=== PATIENT | female | born 1980 | race Two or more races ===

== ENCOUNTER 2016-08-03 04:45 | Inpatient (IN) | payer OTHER ==
[~2016-08-03] VITALS: Ht 160 cm; Wt 61.7 kg
[2016-08-03 05:30] VITALS: BP 111/73; PULSE 89; RESP 18
[2016-08-03] MEDS ORDERED: PRENAT PO (05:34)
[2016-08-03] MEDS ORDERED: AMPICILLIN 2 GM/NS (PMX) 100 ML IV ONE (06:00)
[2016-08-03] MEDS ORDERED: TERBUTALINE 1 MG/ML INJ SC SCH (06:00)
[2016-08-03] MEDS ORDERED: MAGNESIUM SULFATE 4 GM/100 ML 100 ML IVPB ONE (06:00)
[2016-08-03] MEDS ORDERED: MAGNESIUM SULFATE 20 GM/500 ML 500 ML IV SCH (06:00)
[2016-08-03] MEDS ORDERED: MAGNESIUM SULFATE 4 GM/100 ML 100 ML IV ONE (06:00)
[2016-08-03] MEDS: LACTATED RINGER'S 1,000 ML IV SCH ×3 (06:05→22:36)
[2016-08-03] MEDS ORDERED: TERBUTALINE 1 ML ONE (06:18)
--- NOTE | 2016-08-03 06:46 | TRIAGE ---
OB Triage Datetime Report Generated by CPN: 08/03/2016 06:46 Datetime: 08/03/2016 05:43 Stage of : OB Triage Datetime: 08/03/2016 05:41 Stage of : OB Triage Datetime: 08/03/2016 05:32 Stage of : OB Triage Amniotic Fluid Color: Clear Amniotic Fluid Amount: Small Amniotic Fluid Odor: None Vaginal Bleeding: None Pool: Positive Nitrazine: Positive ROM Test Kit: OBTAINED Datetime: 08/03/2016 05:25 Vaginal Exam Dilatation (cms): 1.0 Effacement (%): 30 Station: -3 Exam By: Brian GARCIA RN Vaginal Bleeding: None Cervix, Consistency: Firm Cervix, Position: Posterior Datetime: 08/03/2016 05:09 Stage of : OB Triage Time of Arrival: 08/03/2016 04:43 EGA: 30.5 Arrived By: Wheelchair Arrived From: Home Chief Complaint: SROM Movement: Present Contractions: Denies/Absent Rupture of Membranes: Ruptured Vaginal Bleeding: None Vaginal Discharge: Denies Recent Sexual Intercouse: Denies Abdominal Trauma: Not Applicable Patient Complaints: Other Time Provider Notified: 08/03/2016 05:43 Provider Notified: Abuseleme Initial Plan: ROM+, nitrazine, SVE Maternal Assessment Level of Consciousness: Fully Conscious DTR's/Clonus: DTRs 2+; No Clonus Headache: Denies Blurred Vision: No Respiratory Effort: Unlabored Nausea/Vomiting: Denies RUQ Epigastric Pain: Denies Lower Extremities Edema: None Degree: None Upper Extremities Edema: None Degree: None Facial Edema: None Fall Risk Assessment History of Falling: (0) No Secondary Diagnosis: (0) No Ambulatory Aid: (0) Bedrest/Nurse Assist IV Therapy: (0) No Gait: (0) Normal/Bedrest/Immobile Mental Status: (0) Oriented to Own Ability Fall Score: 0 Fall Risk Score Definition: No Risk: No action required Labor Evaluation Frequency: 0 Monitor Mode: External Duration (sec)2399: 0 Pattern: Normal: <= 5 Contractions in 10 Minutes Resting Tone [place]: Relaxed Contraction Comments: pt denies feeling UC's or cramping.
[2016-08-03] MEDS: BETAMET NA PHOS/AC(6 MG/ML) 5ML INJ IM SCH (06:55)
--- NOTE | 2016-08-03 07:33 | RADRPT ---
PROCEDURE: US OB biophysical profile. CLINICAL INDICATION: decreased movements, labor TECHNIQUE: Multiple sonographic images of the pelvis were obtained. The images were reviewed on a PACS workstation. COMPARISON: No prior studies are available for comparison. FINDINGS: The cervix is dilated. There is evidence of funneling. The internal os is dilated to 2 cm. There is a single viable intrauterine gestation. Cardiac activity is present with 146 beats per min sharla. There is a vertex presentation. The placenta is posterior. There is no evidence of placental abruption. There is a slightly decreased amount of amniotic fluid with an RADHA = 6.9 cm. Biophysical profile: movement 2/2 tone 2/2. breathing 2/2 RADHA 2/2 Total 02/02 RPTAT: AA . IMPRESSION: Normal biophysical profile. Dilated cervix with evidence of funneling. Mild oligohydramnios. . .Brian Anderson MD, MD Date Time Electronically viewed and signed by .Brian Anderson MD, on 08/03/2016 07:33 .S/
--- NOTE | 2016-08-03 07:34 | RADRPT ---
PROCEDURE: US OB. CLINICAL INDICATION: Size and dates , labor TECHNIQUE: Multiple sonographic images of the pelvis and gravid uterus were obtained. The images were reviewed on a PACS workstation. COMPARISON: No prior studies are available for comparison. FINDINGS: There is a single viable intrauterine gestation. Cardiac activity is present with 146 beats per min sharla. There is a vertex presentation. The placenta is posterior. There is no evidence for an abruption or placenta previa. Measurements were made in order to determine age. The results are as follows: BPD =8.2 cm HC =29.7 cm AC =26.7 cm FL =5.3 cm Estimated gestational age of approximately 31 weeks and 1 day based on ultrasound measurements. Clinical age: 30 weeks and 5 days. The estimated date of delivery is 10/04/16, based on ultrasound measurements. The EFW = 1553 g, 25.5%, based on LMP age. RPTAT: AA IMPRESSION: Single viable intrauterine gestation of approximately 31 weeks and 1 day based on ultrasound measur ements. .Brian Anderson MD, Date Time Electronically viewed and signed by .Brian Anderson MD, MD on 08/03/2016 07:34 .S/
[2016-08-03 07:36] LABS: BASOPHILS % 0.3 % (0.0-2.0); EOSINOPHILS # 0.5 10^3/ul (0.0-0.5); EOSINOPHILS % 4.7 % (0.0-7.0); HEMATOCRIT 32.6 % (37.0-47.0); HEMOGLOBIN 11.2 g/dl (12.0-16.0); LYMPHOCYTES # 2.1 10^3/ul (0.8-2.9); MEAN CORPUSCULAR HEMOGLOBIN 31.6 pg (29.0-33.0); MEAN CORPUSCULAR HGB CONC 34.3 g/dl (32.0-37.0); MEAN CORPUSCULAR VOLUME 92.2 fl (82.0-101.0); MEAN PLATELET VOLUME 8.9 fl (7.4-10.4); MONOCYTE # 0.8 10^3/ul (0.3-0.9); MONOCYTES % 8.2 % (0.0-11.0); NEUTROPHIL # 6.5 10^3/ul (1.6-7.5); NEUTROPHILS % 65.8 % (39.0-77.0); PLATELET COUNT 196 10^3/UL (140-440); RED BLOOD COUNT 3.53 10^6/ul (4.20-5.40); RED CELL DISTRIBUTION WIDTH 13.8 % (11.5-14.5); UNCORRECTED WBC 9.9 10^3/ul (4.8-10.8); WHITE BLOOD COUNT 9.9 10^3/ul (4.8-10.8)
[2016-08-03 07:43] LABS: CONDITION 1
[2016-08-03 07:45] LABS: ADD UMIC YES; URINE BILIRUBIN (Dip) NEGATIVE (NEGATIVE); URINE BLOOD (Dip) TRACE (NEGATIVE); URINE COLOR LT. YELLOW (YELLOW); URINE GLUCOSE (Dip) NEGATIVE (NEGATIVE); URINE KETONES (Dip) NEGATIVE (NEGATIVE); URINE LEUKOCYTE ESTERASE (Dip) NEGATIVE (NEGATIVE); URINE NITRITE (Dip) NEGATIVE (NEGATIVE); URINE TOTAL PROTEIN (Dip) NEGATIVE (NEGATIVE); URINE UROBILINOGEN (Dip) 0.2 E.U./dL (0.1-1.0)
[2016-08-03 07:58] LABS: INR 1.01; PARTIAL THROMBOPLASTIN TIME 23.8 Sec (25.0-35.0); PROTIME 13.3 Sec (12.2-14.2)
[2016-08-03] MEDS: MAGNESIUM SULFATE 20 GM/500 ML 500 ML IV SCH ×2 (07:59→16:48)
[2016-08-03] MEDS ORDERED: ACETAMINOPHEN 325 MG TAB PO PRN (08:00)
[2016-08-03 08:24] LABS: BACTERIA,URINE RARE; URINE RBCS NONE SEEN /HPF (0)
--- NOTE | 2016-08-03 09:03 | PREOPHP ---
DATE OF ADMISSION: 08/03/2016 HISTORY OF PRESENT ILLNESS: This is a 35-year-old female, 4, para 1. This patient had a pr evious vaginal delivery at term. At this time, her due date is October 07 and gestational age today is 30 weeks and 5/7, and she had woken up this morning with abundant fluid that came from spontaneo us rupture of membranes. The Nitrazine paper pulling was positive and Nitrazine was positive. An u ltrasound was done with an amniotic fluid level of 6. She is not wing and she is being admit cresencio for 30 and 5/7 weeks' with spontaneous rupture of membranes, to treat her accordingly to avoid delivery as much as we can and to be able to give her all the medications she needs to prot ect the baby's brain and antibiotics and protect her lungs. PAST MEDICAL HISTORY: Noncontributory except for a normal spontaneous delivery. She says she had b een having pressure on her bladder area all this time since last week, and she has no pain. ALLERGIES: THE PATIENT IS NOT ALLERGIC TO ANY MEDICATIONS. SOCIAL HISTORY: She does not drink or smoke. No history of drugs. PHYSICAL EXAMINATION: VITAL SIGNS: Stable. She is afebrile. Normal blood pressure 100/80 and pulse is 80, respirations 16. HEAD AND NECK: Normal. CHEST: Clear. HEART: Normal sinus rhythm. LUNGS: Clear. ABDOMEN: Soft, nontender, no masses. Cephalic presentation of the baby and heart tones are n ormal and the trace on the monitor is normal. PELVIC: At this time is avoided due to the fact that she is ruptured. The ultrasound says that the re was no cervix, there was possibly a complete effacement. EXTREMITIES: Normal with normal pulses, no edema. The patient's weight is normal for her height. She is approximately 4 feet 9 inches. DIAGNOSES: 30 and 5/7 weeks' , spontaneous rupture of membranes. PLAN: She is being admitted for further treatment. The patient has been advised of the possibility that the baby will go twice a year or have complications, and she is aware that she needs to be in complete bed rest and comply with our orders. Dictated By: KYLIE COLE/KAT Conf#: [id number] DID#: [id number]
[2016-08-03] MEDS: DOCUSATE SODIUM 100 MG CAP PO SCH ×3 (09:21→20:59)
[2016-08-03] MEDS: MULTIVIT/MIN/FOLATE/IRON/PREN TAB PO SCH (09:21)
[2016-08-03] MEDS ORDERED: AMPICILLIN 1 GM/NS (PMX) 50 ML IV SCH (10:00)
[2016-08-03] MEDS: ERYTHROMYCIN LACTOBIONATE 250 MG in SOD CHLORIDE 0.9% 100 ML IVPB SCH ×2 (11:38→18:31)
[2016-08-03] MEDS: AMPICILLIN 2 GM/NS (PMX) 100 ML IVPB SCH ×3 (13:00→23:33)
--- NOTE | 2016-08-03 14:56 | CONS ---
DATE OF ADMISSION: 08/03/2016 DATE OF CONSULTATION: 08/03/2016 REFERRING PHYSICIAN: Dr. Evie Brown HISTORY OF PRESENT ILLNESS: I was asked to talk with this mother who is 30.5 weeks' gestational age with labor and premature rupture of membranes. Mother is a 35-year-old 4, para 1, term 1, AB 2, living 1, with good care. EDC 10/07/2016. Mother's labs are as fol lows: Blood group AB positive, RPR negative, HBsAg negative, HIV negative, GC and chlamydia culture s negative. Mother states that she was sick 2 months ago. She has been started on magnesium sulfate after admission and also received 1 dose of betamethasone on 08/03/2016 at 0700 hours. Mother is a lso receiving antibiotics, ampicillin as well as erythromycin. Estimated weight on ultrasound is 1553 grams. I discussed with mother about the infant being 30.5 weeks with risk for respiratory distress includi ng mild to moderate or severe and treatment with oxygen, CPAP as well as intubation, ventilatory the rapy and Curosurf administration depending on the severity. I also discussed about apnea of prematu rity and treatment with nasal cannula, CPAP, caffeine administration and IMV if required. Discussed about risk of infection due to prematurity and low immunity and starting on antibiotics on admissio n if needed. I also discussed about risk of hyperbilirubinemia and treatment with phototherapy. Di scussed about risk of intraventricular hemorrhage from grade I to grade IV and proportionally increa sed risk for cerebral palsy and neurodevelopmental delay if infant has intraventricular hemorrhage. Discussed about IV nutrition including TPN and possible PICC line placement for TPN. Discussed abo ut risk for feeding intolerance, gastroesophageal reflux and NEC, anemia and risks associated with 3 0.5 weeks. Mother has one child who is 4 years old and states that the child possibly has mild autism as well a s hyperactivity. Discussed about hospital length of 4 to 5 weeks or longer depending on 's clinical condition a nd treatment plans and response to treatment in the NICU. Encouraged her to pump breast milk but merrick hein, mother states that she has this breast pain due to cysts and was not willing. Encouraged her to pump and discussed about the benefits of breast milk. I also discussed about survival of 95% or greater and length of hospitalization and risk of intraventricular hemorrhage, neurodevelopmental d elay. All mother's questions were answered and discussion was concluded after mother had no further questi ons. Dictated By: EDUIN WESTFALL/KAT Conf#: [id number] DID#: [id number]
--- NOTE | 2016-08-03 16:31 | PERINOTE ---
Date/Time of Note Date/Time of Note DATE: 08/03/16 TIME: 16:26 Assessment/Recommendations Assessment: IUP - , rupture of membranes Other Assessments Possible UTI Recommendations: Would continue with ampicillin and erythromycin for 48 hrs, then PO amoxicillin and erythromycin for a total of 7 days to enhance latency. Would continue with the betamethasone course you have begun. After completion, would D/C magnesium sulfate and would not further tocolyse, although magnesium may be used for neuroprotection if the patient is in labor and the fetus is still less than 32 weeks GA. Would plan delivery at 34 weeks if the continues. Have discussed recommendations with the patient. OB Subjective Free Text/Dictaton Patient admitted with PPROM. Also has complaints of painful urination HD# 1 IUP @ 30W5D Current Medications Current Medications Magnesium Sulfate (Magnesium Sulfate 20 Gm/500 ml) 500 ml @ 50 mls/hr Q10H IV Last administered on 08/03/16 07:59; Admin Dose 50 MLS/HR; Start 08/03/16 at 05: 47 Betamethasone Acet/Betameth SodPhos 12 mg 12 mg Q24H IM Last administered on 06:55; Admin Dose 12 MG; Start 08/03/16 at 06:00; Stop 08/04/16 at 06:01 Lactated Ringer's (Lr) 1,000 ml @ 75 mls/hr [id number] IV Last administered on 06:05; Admin Dose 75 MLS/HR; Start 08/03/16 at 06:30 Prenat Multivit/ [place]/Iron/Folic Ac ( S) 1 tab DAILY PO Last administered on 08/03/16 09:21; Admin Dose 1 TAB; Start 08/03/16 at 09:00 Docusate Sodium (Colace) 100 mg TID PO Last administered on 08/03/16 14:14; Admin Dose 100 MG; Start 08/03/16 at 09:00 Acetaminophen 650 mg 650 mg Q6H PRN PO PAIN AND OR ELEVATED TEMP; Start at 08:00 Erythromycin Lactobionate 250 mg/Sodium Chloride 100 ml @ 100 mls/hr Q6 IVPB Last administered on 08/03/16 11:38; Admin Dose 100 MLS/HR; Start 08/03/16 at 12: 00 Ampicillin (Ampicillin 2 Gm/ NS (Pmx)) 100 ml @ 100 mls/hr Q6 IVPB Last administered on 08/03/16t 13:00; Admin Dose 100 MLS/HR; Start 08/03/16 at 12:00 Past Medical History Medical History: no pertinent history Surgical History: other (D&C, Breast biopsy) Para: 1 : 4 LMP (Females 10-50): Family History Significant Family History: hypertension Social History Smoker: non-smoker Alcohol: none Drugs: none OB Admission Exam Physical Exam Vitals: Vital Signs Date Time Temp Pulse Resp B/P Pulse Ox O2 Delivery O2 Flow Rate FiO2 08/03/16 05:30 98.2 89 18 111/73 99 Room Air Heart: Rhythm Normal Lungs: Clear Abdomen: WNL (Suprapubic tenderness) Heart Rate: 130's Accelerations: Accelerations Present (AGA) Decelerations: No Decelerations Varibility: Moderate Contractions on Admission: None Last 72 hours Lab Results CBC & BMP 08/03/16 06:05 Magnesium Level Test 08/03/16 11:53 Magnesium Level 5.3 *H YEYO NICHOLS MD Aug 03, 2016 16:31
[2016-08-04] MEDS: ERYTHROMYCIN LACTOBIONATE 250 MG in SOD CHLORIDE 0.9% 100 ML IVPB SCH ×4 (00:31→18:57)
[2016-08-04] MEDS: MAGNESIUM SULFATE 20 GM/500 ML 500 ML IV SCH ×3 (00:52→21:47)
[2016-08-04] MEDS: BETAMET NA PHOS/AC(6 MG/ML) 5ML INJ IM SCH (05:58)
[2016-08-04] MEDS: AMPICILLIN 2 GM/NS (PMX) 100 ML IVPB SCH ×5 (06:30→23:50)
[2016-08-04] MEDS: MULTIVIT/MIN/FOLATE/IRON/PREN TAB PO SCH (08:26)
[2016-08-04] MEDS: DOCUSATE SODIUM 100 MG CAP PO SCH ×3 (08:26→21:38)
[2016-08-04] MEDS: LACTATED RINGER'S 1,000 ML IV SCH (08:28)
--- NOTE | 2016-08-04 12:20 | PN ---
Date/Time of Note Date/Time of Note DATE: 08/04/16 TIME: 12:14 OB Subjective Subjective Subjective not wing now, not in pain, constipated. OB Objective HEENT: WNL Heart: Rhythm Normal Lungs: Clear, Equal Abdomen: WNL Extremities: Normal Reflexes: Normal Cervical Dilatation: 2cm Effacement: 50% Membranes: Ruptured Heart Rate: 130's Accelerations: Accelerations Present Decelerations: No Decelerations Contractions on Admission: >10 Minutes Apart Intensity: Mild KYLIE MOONEY MD Aug 04, 2016 12:20
[2016-08-04] MEDS ORDERED: BUTORPHANOL 2 MG INJ IV PRN (12:30)
[2016-08-04] MEDS ORDERED: LACTULOSE 30ML CUP PO ONE (12:30)
[2016-08-05] MEDS: ERYTHROMYCIN LACTOBIONATE 250 MG in SOD CHLORIDE 0.9% 100 ML IVPB SCH ×3 (00:51→12:55)
[2016-08-05] MEDS: LACTATED RINGER'S 1,000 ML IV SCH ×2 (04:01→18:10)
[2016-08-05] MEDS: AMPICILLIN 2 GM/NS (PMX) 100 ML IVPB SCH ×2 (06:03→11:38)
[2016-08-05] MEDS: MULTIVIT/MIN/FOLATE/IRON/PREN TAB PO SCH (12:08)
[2016-08-05] MEDS: DOCUSATE SODIUM 100 MG CAP PO SCH ×3 (12:08→21:00)
--- NOTE | 2016-08-05 12:39 | PN ---
Date/Time of Note Date/Time of Note DATE: 08/05/16 TIME: 12:31 OB Subjective Subjective Subjective Denies any fever or chills, reports had some leaking of fluid. Denies any abdominal pain , contractions or other symptoms OB Objective Objective Objective GA: A&O. NAD Abdomen: soft, non tender,no fundal tenderness, no guarding, no rigidity FH consistent with date Extremities: No calf tenderness, no click, no edema. No cord palpable. SCD's are in place Hematology - 72 Hrs Test 08/03/16 06:05 Basophils # 0.010^3/ul (0.0-0.1) Basophils % 0.3% (0.0-2.0) Eosinophils # 0.510^3/ul (0.0-0.5) Eosinophils % 4.7% (0.0-7.0) Hematocrit 32.6% (37.0-47.0) L Hemoglobin 11.2g/dl (12.0-16.0) L Lymphocytes # 2.110^3/ul (0.8-2.9) Lymphocytes % 21.0% (15.0-51.0) Mean Corpuscular Hemoglobin 31.6pg (29.0-33.0) Mean Corpuscular Hemoglobin Concent 34.3g/dl (32.0-37.0) Mean Corpuscular Volume 92.2fl (82.0-101.0) Mean Platelet Volume 8.9fl (7.4-10.4) Monocytes # 0.810^3/ul (0.3-0.9) Monocytes % 8.2% (0.0-11.0) Neutrophils # 6.510^3/ul (1.6-7.5) Neutrophils % 65.8% (39.0-77.0) Nucleated Red Blood Cells # 0.010^3/ul (0.0-0.0) Nucleated Red Blood Cells % 0.0/100WBC (0.0-0.0) Platelet Count 89570^3/UL (140-440) Red Blood Count 3.5310^6/ul (4.20-5.40) L Red Cell Distribution Width 13.8% (11.5-14.5) White Blood Count 9.910^3/ul (4.8-10.8) Chemistry Test 2/6/17 11:53 08/03/16 17:59 08/03/16 23:45 08/04/16 05:45 Magnesium Level 5.3mg/dl (1.7-2.5) *H 5.8mg/dl (1.7-2.5) *H 6.6mg/dl (1.7-2.5) *H 7.1mg/dl (1.7-2.5) *H Test 08/04/16 12:43 08/04/16 14:25 08/05/16 00:46 08/05/16 06:00 Creatinine 0.48mg/dl (0.44-1.00) Magnesium Level 5.5mg/dl (1.7-2.5) *H 4.4mg/dl (1.7-2.5) H 4.4mg/dl (1.7-2.5) H 4.5mg/dl (1.7-2.5) H OB Assessment/Plan Other Assessment: HD#2. IUP at 31 weeks Admitted for PPROM yesterday On latency abx and magnesium, received 2 doses of steriods. last dose of steriod about 5 hours ago No evidence of break through tocolysis, chorioamnionitis. Doing well Switch to PO ampicillin and erythromycin after 48 hours and to compete PO dose for 5 days S/p Neonatology and perinatology consult. Continue expectant management BEATRIZ SPANN MD Aug 05, 2016 12:39
[2016-08-05] MEDS: MAGNESIUM SULFATE 20 GM/500 ML 500 ML IV SCH (12:59)
[2016-08-05] MEDS: AMPICILLIN 500 MG CAP PO SCH (17:47)
[2016-08-05] MEDS: ERYTHROMYCIN BASE (EC) 500 MG TAB PO SCH (17:48)
[2016-08-05] MEDS ORDERED: ERYTHROMYCIN BASE (EC) 250 MG TAB PO SCH (18:00)
[2016-08-06] MEDS: AMPICILLIN 500 MG CAP PO SCH ×4 (00:54→18:16)
[2016-08-06] MEDS: ERYTHROMYCIN BASE (EC) 500 MG TAB PO SCH ×5 (00:54→21:22)
[2016-08-06] MEDS: LACTATED RINGER'S 1,000 ML IV SCH ×2 (04:32→13:50)
[2016-08-06] MEDS: MAGNESIUM SULFATE 20 GM/500 ML 500 ML IV SCH (08:10)
[2016-08-06] MEDS: DOCUSATE SODIUM 100 MG CAP PO SCH ×3 (09:00→21:22)
[2016-08-06] MEDS: MULTIVIT/MIN/FOLATE/IRON/PREN TAB PO SCH (09:10)
--- NOTE | 2016-08-06 13:24 | PN ---
Date/Time of Note Date/Time of Note DATE: 08/06/16 TIME: 13:19 OB Subjective Subjective Subjective still leaking fluid. afebrile, not in pain nor contractions. patient is done with steroids and mag sulfate may be dc tomorrow if ok with perinatologist. sugar test was not done so we don't know if she is GDM due to steroids. had uti being treated. for now we are stable,father and patient were counseled. continue with the same plan OB Objective HEENT: WNL Heart: Rhythm Normal Lungs: Clear, Equal Abdomen: WNL Extremities: Normal Reflexes: Normal KYLIE MOONEY MD Aug 06, 2016 13:24
[2016-08-07] MEDS: AMPICILLIN 500 MG CAP PO SCH ×3 (00:09→12:18)
[2016-08-07] MEDS: LACTATED RINGER'S 1,000 ML IV SCH ×3 (00:10→15:08)
[2016-08-07] MEDS: MAGNESIUM SULFATE 20 GM/500 ML 500 ML IV SCH (02:57)
[2016-08-07] MEDS: ERYTHROMYCIN BASE (EC) 500 MG TAB PO SCH ×2 (09:44→12:57)
[2016-08-07] MEDS: DOCUSATE SODIUM 100 MG CAP PO SCH ×2 (09:44→12:57)
[2016-08-07] MEDS: MULTIVIT/MIN/FOLATE/IRON/PREN TAB PO SCH (09:44)
[2016-08-07] MEDS ORDERED: LACTATED RINGER'S 1,000 ML IV SCH (16:05)
[2016-08-07] MEDS ORDERED: OXYTOCIN 30 UNITS/LR 500 ML IVPB ONE (16:09)
[2016-08-07] MEDS ORDERED: METHYLERGONOVINE 0.2 MG INJ IM PRN ×2 (16:30→17:30)
[2016-08-07] MEDS ORDERED: CARBOPROST 250 MCG INJ IM PRN ×3 (16:30→17:30)
[2016-08-07] MEDS ORDERED: BUTORPHANOL 2 MG INJ IV PRN ×2 (16:30)
[2016-08-07] MEDS ORDERED: OXYTOCIN 30 UNITS/LR 500 ML IV PRN ×3 (16:30→17:30)
[2016-08-07] MEDS ORDERED: ACETAMINOPHEN/CODEINE #3 TAB PO PRN (16:30)
[2016-08-07] MEDS ORDERED: AMPICILLIN 2 GM/NS (PMX) 100 ML IV ONE (16:30)
[2016-08-07] MEDS ORDERED: MISOPROSTOL 200 MCG TAB PR PRN ×3 (16:30→17:30)
[2016-08-07] MEDS ORDERED: OXYTOCIN 30 UNITS/LR 500 ML IV SCH ×4 (16:30)
[2016-08-07] MEDS ORDERED: LIDOCAINE 1% (MPF) 30 ML INJ INJ PRN ×2 (16:30)
[2016-08-07] MEDS ORDERED: IBUPROFEN 600 MG TAB PO PRN (16:30)
[2016-08-07 16:46] LABS: ADD SCAN DIFF NO
[2016-08-07 16:57] LABS: ABNORMAL IP MESSAGE 1; HEMATOCRIT 32.8 % (37.0-47.0); LYMPHOCYTES # 2.3 10^3/ul (0.8-2.9); MEAN CORPUSCULAR HEMOGLOBIN 31.6 pg (29.0-33.0); MEAN CORPUSCULAR HGB CONC 33.5 g/dl (32.0-37.0); MEAN CORPUSCULAR VOLUME 94.3 fl (82.0-101.0); PLATELET COUNT 226 10^3/UL (140-415); RED BLOOD COUNT 3.48 10^6/ul (4.20-5.40); RED CELL DISTRIBUTION WIDTH 13.2 % (11.5-14.5); WHITE BLOOD COUNT 12.6 10^3/ul (4.8-10.8)
[2016-08-07] MEDS ORDERED: LACTATED RINGER'S 1,000 ML IV PRN (17:00)
--- NOTE | 2016-08-07 17:04 | LDN ---
Date/Time of Note Date/Time of Note DATE: 08/07/16 TIME: 17:00 Delivery Summary 31.2 weeks with 4 days SROM SPONTANEOUS VAGINAL DELIVERY MIDLINE EPISIOTOMY Placenta Delivered: Spontaneously Perineum intact?: No Estimated blood loss: 400 Sponge & Needle done & correct: Yes All needle counts correct: Yes Any foreign bodies felt in the: No Problems: KYLIE MOONEY MD Aug 07, 2016 17:04
[2016-08-07 17:06] LABS: INR 0.94; PROTIME 12.6 Sec (12.2-14.2)
[2016-08-07 17:07] LABS: PARTIAL THROMBOPLASTIN TIME 21.8 Sec (25.0-35.0)
[2016-08-07] MEDS ORDERED: DIPHENHYDRAMINE 25 MG CAP PO PRN (17:30)
[2016-08-07] MEDS ORDERED: ACETAMINOPHEN 325 MG TAB PO PRN ×2 (17:30)
[2016-08-07] MEDS ORDERED: LANOLIN 7 GM TUBE TOP PRN (17:30)
[2016-08-07] MEDS ORDERED: BENZOCAINE 20% 56 ML SPRAY TOP PRN (17:30)
[2016-08-07] MEDS ORDERED: DIBUCAINE 1% 30 GM OINT PR PRN (17:30)
[2016-08-07] MEDS ORDERED: ONDANSETRON 4 MG INJ IV PRN (17:30)
[2016-08-07] MEDS: IBUPROFEN 800 MG TAB PO SCH ×2 (18:06→23:52)
[2016-08-07 18:23] VITALS: BP 126/73; PULSE 77; RESP 18
[2016-08-07] MEDS: OXYTOCIN 30 UNITS/LR 500 ML IV SCH ×2 (19:16→21:04)
[2016-08-07] MEDS ORDERED: AMPICILLIN 1 GM/NS (PMX) 50 ML IV SCH (19:30)
[2016-08-07 20:00] VITALS: BP 112/70; PULSE 70; RESP 18
[2016-08-07] MEDS: SENNA/DOCUSATE NA (8.6MG/50MG) TAB PO SCH (21:00)
[2016-08-07 21:19] LABS: EOSINOPHILS # 0.6 10^3/ul (0.0-0.5); MONOCYTE # 1.1 10^3/ul (0.3-0.9); NEUTROPHIL # 8.4 10^3/ul (1.6-7.5)
[2016-08-08 00:05] VITALS: BP 111/58; PULSE 78; RESP 18
[2016-08-08 04:00] VITALS: BP 96/59; PULSE 66; RESP 18
[2016-08-08] MEDS: IBUPROFEN 800 MG TAB PO SCH ×4 (05:50→23:52)
[2016-08-08 07:30] VITALS: BP 104/55; PULSE 64; RESP 18
[2016-08-08] MEDS: SENNA/DOCUSATE NA (8.6MG/50MG) TAB PO SCH ×2 (09:00→21:00)
[2016-08-08] MEDS ORDERED: INFLUENZA VIRUS VACCINE 0.5 ML (DISPENSING) IM* ONE (09:00)
[2016-08-08] MEDS: LACTULOSE 30ML CUP PO PRN (10:12)
--- NOTE | 2016-08-08 13:03 | PN ---
Date/Time of Note Date/Time of Note DATE: 08/08/16 TIME: 13:01 OB Subjective Subjective Subjective feels good uterus contracted lochia normal OB Objective HEENT: WNL Heart: Rhythm Normal Lungs: Clear, Equal Abdomen: WNL Extremities: Normal Reflexes: Normal KYLIE MOONEY MD Aug 08, 2016 13:03
[2016-08-08 16:00] VITALS: BP 102/55; PULSE 77; RESP 19
[2016-08-08 20:05] VITALS: BP 97/54; PULSE 76; RESP 18
[2016-08-09 04:41] VITALS: BP 98/56; PULSE 77; RESP 19
[2016-08-09] MEDS: IBUPROFEN 800 MG TAB PO SCH ×2 (05:45→11:40)
[2016-08-09 07:26] LABS: BASOPHILS % 0.3 % (0.0-2.0); EOSINOPHILS # 0.7 10^3/ul (0.0-0.5); HEMATOCRIT 30.4 % (37.0-47.0); HEMOGLOBIN 10.4 g/dl (12.0-16.0); LYMPHOCYTES # 3.6 10^3/ul (0.8-2.9); LYMPHOCYTES % 27.4 % (15.0-51.0); MEAN CORPUSCULAR HEMOGLOBIN 31.7 pg (29.0-33.0); MEAN CORPUSCULAR HGB CONC 34.3 g/dl (32.0-37.0); MEAN CORPUSCULAR VOLUME 92.5 fl (82.0-101.0); MEAN PLATELET VOLUME 7.8 fl (7.4-10.4); MONOCYTE # 1.1 10^3/ul (0.3-0.9); MONOCYTES % 8.2 % (0.0-11.0); NEUTROPHIL # 7.8 10^3/ul (1.6-7.5); NEUTROPHILS % 59.1 % (39.0-77.0); PLATELET COUNT 211 10^3/UL (140-440); RED BLOOD COUNT 3.29 10^6/ul (4.20-5.40); RED CELL DISTRIBUTION WIDTH 13.4 % (11.5-14.5); UNCORRECTED WBC 13.3 10^3/ul (4.8-10.8); WHITE BLOOD COUNT 13.3 10^3/ul (4.8-10.8)
[2016-08-09 07:30] VITALS: BP 109/51; PULSE 77; RESP 18
[2016-08-09 07:38] LABS: CONDITION 1
[2016-08-09] MEDS: SENNA/DOCUSATE NA (8.6MG/50MG) TAB PO SCH (08:26)
[2016-08-09] MEDS ORDERED: DIPHTH/TET/ACEL PERTUSS (ADULT) 0.5 ML VIAL IM* ONE (09:00)
--- NOTE | 2016-08-09 12:30 | PD.PPDC ---
MACHINE I COREMAKER Discharge Instruction Condition Patient Condition: Good Diet Diet: Resume Regular Diet Activity/Restrictions Activity: Normal Activity May Shower Restrictions: No Exercising No Lifting No Driving No Sexual Activity Nothing in the Vagina No [place] No Tampons, douche Follow-up Follow-up with Physician: 6, Week/Weeks Return to clinic for TOURS CAPTAIN Instructions: Fever greater than 101 Chills Worsening abdominal pain Excessive Vaginal Bleeding More than 2 pads per hour Unable to tolerate diet OB Instructions: Breast Tenderness Depression Blurried Vision Headache KYLIE MOONEY MD Aug 09, 2016 12:29
--- NOTE | 2016-08-09 12:32 | DS ---
Date/Time of Note Date/Time of Note DATE: 08/09/16 TIME: 12:30 Obstetrical Discharge Record Final Diagnosis Final Diagnosis: delivered Other Final Diagnosis PROM Vaginal Delivery Obstetrical Delivery: Spontaneous, Laceration, Repaired Complications Complications: Low weight 1500-2500gms Complications Labor, Other Rupture of Membranes: Yes Gestational Age at Rupture 30.2 WEEKS Condition on Discharge Physical Assessment Voiding: Yes Bowel Movement: Yes Breast: Soft, non-tender, Filling Fundus: Firm Calf Tenderness: No Patient Condition: Good KYLIE MOONEY MD Aug 09, 2016 12:32
[2016-08-09] MEDS: LACTULOSE 30ML CUP PO PRN (12:48)
== END 2016-08-09 17:04 | disposition home or self-care (01) | DRG 775 ==
LOC: OBT 04:45 → L-D 04:47 → OBT 06:29 → OBG 06:30 → L-D 08-07 15:36 → PP1 08-07 18:03
PROVIDERS: ADMIT Obstetrics & Gynecology; ATTEND Obstetrics & Gynecology
PROC: 10E0XZZ Delivery of Products of Conception, External Approach (ICD-10-PCS; principal; 2016-08-07)
PROC: 0W8NXZZ Division of Female Perineum, External Approach (ICD-10-PCS; 2016-08-07)
DX: O60.14X0 Preterm labor third trimester with preterm delivery third trimester, not applicable or unspecified (principal); O23.43 Unspecified infection of urinary tract in pregnancy, third trimester; Z37.0 Single live birth; Z3A.31 31 weeks gestation of pregnancy; O09.523 Supervision of elderly multigravida, third trimester
CPT/HCPCS: 36415; 76815; 76817; 76818; 81001; 81003; 82565; 83735; 84112; 85025; 85610; 85730; 86592; 86900; 86901; 87081; 87086; 88307; 90686; 90715; 99464; G0463; J0290; J0702; J1364; J2210; J2590; J3105; J3475; J7120

== ENCOUNTER 2017-05-08 17:08 | Emergency (ER) | END 2017-05-08 20:04 | disposition home or self-care (01) | DX: R05 Cough (principal) | CPT/HCPCS: 71010; 81003; Z7502; Z7610 ==

== ENCOUNTER 2017-09-24 11:19 | Emergency (ER) | END 2017-09-24 11:34 | disposition home or self-care (01) ==

== ENCOUNTER 2018-09-27 10:03 | Emergency (ER) | payer OTHER ==
[~2018-09-27] VITALS: Wt 76.0 kg
[~2018-09-27 10:03] MED LIST: ACET500C5 PO; ALBU8.5H8 INH; AMOX1TAB10 PO; BENZ-6 PO; IBUP-1542 PO; ONDA4TAB14 PO; PRENAT PO
[2018-09-27 10:09] VITALS: BP 123/60; PULSE 87; RESP 18
[2018-09-27] MEDS ORDERED: IBUPROFEN 600 MG TAB PO ONE (10:30)
--- NOTE | 2018-09-27 11:26 | ERD ---
ER Documentation Chief Complaint Chief Complaint BACK PAIN SINCE LAST WEDNESDAY HPI Patient is a 37-year-old female with a past medical history of chronic back pain, presents the ER for concerns of acute exacerbation times 2 days. Patient states she has had back pain for the last 2 years. She states yesterday she was reaching to get something off the top shelf when she had pain. Pain is localized to the right mid back and lumbar region. Patient denies any saddle anesthesia, urine incontinence or stool incontinence. Patient is concerned that she may "have a broken bone" and is requesting x-rays. Patient denies any urinary symptoms. Patient denies any chest pain or shortness of breath. Sarah lindquist states that she does take Ibuprofen and it helps with her pain. Patient denies any unilateral weakness. Patient is able to ablate without any difficulty. Patient denies any falls or trauma. ROS All systems reviewed and are negative except as per history of present illness. Medications Home Meds Active Scripts Acetaminophen* (Tylophen*) 500 Mg Capsule, 1 CAP PO Q6H PRN for PAIN AND OR ELEVATED TEMP, #20 CAP Prov:PASILABAN,KLAR F 09/24/17 Benzonatate* (Tessalon Perle*) 100 Mg Capsule, 100 MG PO Q8H PRN for COUGH, #20 CAP Prov:PASILABAN,KLAR F 09/24/17 Amoxicillin/Potassium Clav (Amox-Clav 875-125 mg Tablet) 875-125 mg Tab, 1 TAB PO BID for 10 Days, #20 TAB Prov:PASILABAN,KLAR F 09/24/17 Amoxicillin/Potassium Clav (Amox-Clav 875-125 mg Tablet) 875-125 mg Tab, 1 TAB PO BID for 7 Days, #14 TAB Prov:KAJAL SALAZAR PA-C 05/08/17 Ibuprofen* (Motrin*) 600 Mg Tab, 600 MG PO Q6, #30 TAB Prov:HESHAM ARTHUR PA-C 05/08/17 Ondansetron (Ondansetron Odt) 4 Mg Tab.rapdis, 4 MG PO Q6H PRN for NAUSEA AND/OR VOMITING, #10 TAB Prov:HESHAM ARTHUR PA-C 05/08/17 Albuterol Sulfate* (Proair HFA*) 8.5 Gm Hfa.aer.ad, 2 PUFF INH Q4, #1 INHALER Prov:HESHAM ARTHUR Steven REYES 05/08/17 Benzonatate* (Tessalon Perle*) 100 Mg Capsule, 100 MG PO Q8H PRN for COUGH, #20 CAP Prov:HESHAM ARTHUR AMY 05/08/17 Reported Medications Multivit/Min/Fol Ac/Iron/Pren* ( S*) 1 Tab Tab, 1 TAB PO DAILY, TAB 08/03/16 Allergies Allergies: Coded Allergies: codeine (Verified Allergy, Mild, NAUSEA AND VOMITING, 08/03/16) PMhx/Soc Hx Alcohol Use: No Hx Substance Use: No Hx Tobacco Use: No Smoking Status: Never smoker FmHx Family History: No diabetes Physical Exam Vitals Vital Signs Date Temp Pulse Resp B/P (MAP) Pulse Ox O2 O2 Flow FiO2 Time Delivery Rate 09/27/18 98.1 87 18 123/60 99 10:09 (81) Physical Exam GENERAL: Well-developed, well-nourished female. Appears in no acute distress. Speaking in full sentences HEAD: Normocephalic, atraumatic. EYES: Pupils are equally reactive bilaterally. EOMs grossly intact. No conjunctival erythema. NECK: Supple. No meningismus. Normal range of motion of the neck. No cervical midline tenderness. LUNG: Clear to auscultation bilaterally. No rhonchi, wheezing, rales or coarse breath sounds. HEART: Regular rate and rhythm. No murmurs, rubs or gallops. Equal pulses in bilateral upper extremities. BACK: No midline tenderness. Tender to palpation in the right thoracic and lumbar paraspinal muscles. Pain is reproducible. Positive spasms noted. Negative straight leg raise bilaterally. EXTREMITIES: Equal pulses bilaterally. No peripheral clubbing, cyanosis or edema . No unilateral leg swelling. NEUROLOGIC: Alert and oriented. Moving all four extremities without any difficulty. Normal speech. Steady gait. SKIN: Normal color. Warm and dry. No rashes or lesions. Results 24 hrs Laboratory Tests Test 09/27/18 10:46 POC Beta HCG, Qualitative NEGATIVE Current Medications Medications Dose Sig/Zack Start Time Status Last (Trade) Ordered Route PRN Stop Time Admin Dose Reason Admin Ibuprofen 600 mg ONCE ONCE 09/27/18 DC 09/27/18 (Motrin) PO 10:30 09/27/18 10:53 10:31 Procedures/MDM ED COURSE: The patient was stable throughout ED course. I kept the patient and/or family informed of laboratory and diagnostic imaging results throughout the ED course. . DIAGNOSTIC IMAGING: Read by radiologist. Patient: SANTANA HODGES : 1980 Age: 37 Sex: F MR #: [id number] DOS: 09/27/18 1021 Ordering MD: DARCY VASQUEZ PA-C Location: [facility] Room/Bed: PROCEDURE: XR Thoracic Spine. CLINICAL INDICATION: Mid back pain. TECHNIQUE: Two views. Frontal and lateral. COMPARISON: None available FINDINGS: There is normal stature and alignment of the vertebrae. There is no fracture. There is no lytic or blastic lesion. The disk height is normal. The paravertebral soft tissues are unremarkable. IMPRESSION: 1. Unremarkable images of the thoracic spine. RPTAT: QQ Physician West Date Time Electronically viewed and signed by Physician West on 09/27/2018 12:28 KR/ CC: DARCY VASQUEZ PA-C [phone] PROCEDURES: None. MEDICATIONS GIVEN: Ibuprofen Patient tolerated medication well with no adverse reactions. Patient reported improvement in pain. MEDICAL DECISION MAKING: This 37-year-old female presents ER for concerns of back pain which started after attempting to reach an object off a shelf. Patient has a history of chronic back pain. vital signs were reviewed. Patient was afebrile. Patient denied any saddle anesthesia, urinary incontinence, bowel incontinence, night pain or recent trauma. On exam, patient did have reproducible tenderness in the thoracic and lumbar region. Patient requested x-rays as she was concerned that her back was broken. X-ray imaging was unremarkable. Patient likely has musculoskeletal pain. Patient was advised to use ibuprofen and warm to the affected area. Low suspicion for cauda equine syndrome, spinal fractures, epidural abscess, spinal metastases, osteomyelitis, aortic dissection, ruptured or leaking AA, pyelonephritis or nephrolithiasis. PRESCRIPTIONS: Ibuprofen DISCHARGE: At this time, patient is stable for discharge and outpatient management. RICE therapy and ROM exercises were advised to avoid stiffness. I have instructed the patient to follow-up with his/her primary care physician in 1-2 days. I have discussed with the patient the possibility of needing to see an audio visual production specialist for further workup and imaging if the pain persists. I have instructed the patient to promptly return to the ER for any new or worsening symptoms including increased pain, swelling, warmth, urinary incontinence, stool incontinence, weakness or numbness. The patient and/or family expressed understanding of and agreement with this plan. All questions were answered. Home care instructions were provided. Disclaimer: Inadvertent spelling and grammatical errors are likely due to EHR/dictation software use and do not reflect on the overall quality of patient care. Also, please note that the electronic time recorded on this note does not necessarily reflect the actual time of the patient encounter. Departure Diagnosis: Primary Impression: Back pain Back pain location: back pain in unspecified location Chronicity: unspecified Back pain laterality: unspecified Qualified Codes: M54.9 - Dorsalgia, unspecified Additional Impression: Musculoskeletal pain Condition: Fair Patient Instructions: Back Pain (Acute Or Chronic) Referrals: COMM[facility]ITY [facility] YOU HAVE RECEIVED A MEDICAL SCREENING EXAM AND THE RESULTS INDICATE THAT YOU DO NOT HAVE A CONDITION THAT REQUIRES URGENT TREATMENT IN THE EMERGENCY DEPARTMENT. FURTHER EVALUATION AND TREATMENT OF YOUR CONDITION CAN WAIT UNTIL YOU ARE SEEN IN YOUR DOCTORS OFFICE WITHIN THE NEXT 1-2 DAYS. IT IS YOUR RESPONSIBILITY TO MAKE AN APPOINTMENT FOR FOLOW-UP CARE. IF YOU HAVE A PRIMARY DOCTOR --you should call your primary doctor and schedule an appointment IF YOU DO NOT HAVE A PRIMARY DOCTOR YOU CAN CALL OUR PHYSICIAN REFERRAL HOTLINE AT IF YOU CAN NOT AFFORD TO SEE A PHYSICIAN YOU CAN CHOSE FROM THE FOLLOWING [facility] [address] [facility]. [facility] [address] [facility] [address] [facility]. [facility] [address] [facility]. [facility] [address] [facility]. [facility]. [address] [facility]. [facility] YOU HAVE RECEIVED A MEDICAL SCREENING EXAM AND THE RESULTS INDICATE THAT YOU DO NOT HAVE A CONDITION THAT REQUIRES URGENT TREATMENT IN THE EMERGENCY DEPARTMENT. FURTHER EVALUATION AND TREATMENT OF YOUR CONDITION CAN WAIT UNTIL YOU ARE SEEN IN YOUR DOCTORS OFFICE WITHIN THE NEXT 1-2 DAYS. IT IS YOUR RESPONSIBILITY TO MAKE AN APPOINTMENT FOR FOLOW-UP CARE. IF YOU HAVE A PRIMARY DOCTOR --you should call your primary doctor and schedule and appointment IF YOU DO NOT HAVE A PRIMARY DOCTOR YOU CAN CALL OUR PHYSICIAN REFERRAL HOTLINE AT . IF YOU CAN NOT AFFORD TO SEE A PHYSICIAN YOU CAN CHOSE FROM THE FOLLOWING [facility] INSTITUTIONS: [facility] [address] [place] [address] [facility] [address] [place] [address] [facility] [address] [place] [address] Additional Instructions: Call your primary care doctor TOMORROW for an appointment during the next 1-2 days.See the doctor sooner or return here if your condition worsens before your appointment time. DARCY VASQUEZ PA-C Sep 27, 2018 11:26
[2018-09-27] MEDS ORDERED: IBUP-1542 PO (12:35)
== END 2018-09-27 12:53 | disposition home or self-care (01) ==
LOC: FTE 10:03
DX: M54.6 Pain in thoracic spine (principal); M79.10 Myalgia, unspecified site
CPT/HCPCS: 72072; 81025; Z7502; Z7610

== ENCOUNTER 2018-12-09 18:58 | Emergency (ER) | payer OTHER ==
[~2018-12-09] VITALS: Ht 154.9 cm; Wt 58.3 kg
[2018-12-09 19:05] VITALS: Ht 154.9 cm; Wt 58.3 kg
--- NOTE | 2018-12-09 20:51 | ERD ---
ER Documentation Chief Complaint Chief Complaint low back pain radiating to left leg x 3 months HPI This is a 38-year-old female who presents here in the emergency department with complaints of lower back pain that radiates to left lower extremity. Stated that this has been going on and off for about 3 months. Stated that she has a scheduled by her family physician for MRI and just waiting for authorization. Stated that his primary care physician already did a CAT scan of her abdomen and pelvis and blood works and was told that there was no renal pathology, kidney stones. Also stated that she just finished her prednisone that was prescribed by her primary care physician for her pain. Also stated that she was prescribed Lyrica but her insurance does not cover this. LMP: November 23, 2018. G4, P2 M2. Denies headache, head injury, loss of consciousness, dizziness, neck pain, neck stiffness, throat pain, difficulty swallowing, difficulty breathing lying flat, shoulder pain, chest pain, abdominal pain, nausea, vomiting, constipation, diarrhea, urinary symptoms, or possibility being , loss of bowel and bladder control, trauma, injury, falls, difficulty walking due to pain, numbness or tingling sensation, calf pain, recent travel, recent major surgery in the last 3 weeks, calf pain, recent long travel, recent exposure to any illness, recent antibiotic use in the last 3 months, fever, chills, seizures. Past medical history: Chronic back pain. Surgical history: Biopsy of left breast. Social: Denies smoking, use of alcoholic beverages, use of illegal drugs. ROS All systems reviewed and are negative except as per history of present illness. Medications Home Meds Active Scripts Baclofen* (Baclofen*) 10 Mg Tablet, 10 MG PO Q8 PRN for MUSCLE SPASMS, #20 TAB Prov:CONSTANTINO IVERSONAR F 12/09/18 Ibuprofen* (Motrin*) 600 Mg Tab, 600 MG PO Q8 PRN for PAIN AND OR ELEVATED TEMP, #30 TAB Prov:HARMONYILAJORJE CARLIN F 12/09/18 Ibuprofen* (Motrin*) 600 Mg Tab, 600 MG PO Q6, #30 TAB Prov:DARCY VASQUEZ PA-C 09/27/18 Acetaminophen* (Tylophen*) 500 Mg Capsule, 1 CAP PO Q6H PRN for PAIN AND OR JAVIER VATED TEMP, #20 CAP Prov:JORJE IVERSON F 09/24/17 Benzonatate* (Tessalon Perle*) 100 Mg Capsule, 100 MG PO Q8H PRN for COUGH, #20 CAP Prov:JORJE IVERSON 09/24/17 Amoxicillin/Potassium Clav (Amox-Clav 875-125 mg Tablet) 875-125 mg Tab, 1 TAB PO BID for 10 Days, #20 TAB Prov:JORJE IVERSON 09/24/17 Amoxicillin/Potassium Clav (Amox-Clav 875-125 mg Tablet) 875-125 mg Tab, 1 TAB PO BID for 7 Days, #14 TAB Prov:KAJAL SALAZAR PA-C 05/08/17 Ibuprofen* (Motrin*) 600 Mg Tab, 600 MG PO Q6, #30 TAB Prov:HESHAM ARTHUR PA-C 05/08/17 Ondansetron (Ondansetron Odt) 4 Mg Tab.rapdis, 4 MG PO Q6H PRN for NAUSEA AND/OR VOMITING, #10 TAB Prov:HESHAM ARTHUR PA-C 05/08/17 Albuterol Sulfate* (Proair HFA*) 8.5 Gm Hfa.aer.ad, 2 PUFF INH Q4, #1 INHALER Prov:HESHAM ARTHUR PA-C 05/08/17 Benzonatate* (Tessalon Perle*) 100 Mg Capsule, 100 MG PO Q8H PRN for COUGH, #20 CAP Prov:HESHAM ARTHUR PA-C 05/08/17 Reported Medications Multivit/Min/Fol Ac/Iron/Pren* ( S*) 1 Tab Tab, 1 TAB PO DAILY, TAB 08/03/16 Allergies Allergies: Coded Allergies: codeine (Verified Allergy, Mild, NAUSEA AND VOMITING, 08/03/16) PMhx/Soc Medical and Surgical Hx: pt denies Medical Hx, pt denies Surgical Hx Hx Alcohol Use: No Hx Substance Use: No Hx Tobacco Use: No Smoking Status: Never smoker Physical Exam Vitals Vital Signs Date Temp Pulse Resp B/P (MAP) Pulse Ox O2 O2 Flow FiO2 Time Delivery Rate 12/09/18 97.9 74 16 125/75 100 Room Air 23:40 (92) 12/09/18 59 20 106/64 100 Room Air 21:55 (78) 12/09/18 97.4 62 22 87/54 (65) 100 Room Air 21:50 12/09/18 99.7 94 20 155/76 99 19:05 (102) Physical Exam This patient was examined with female retail maintenance technician, Tamar HATCH. Const: No acute distress Head: Atraumatic Eyes: Normal Conjunctiva ENT: Normal External Ears, Nose and Mouth. Neck: Full range of motion. No meningismus. Resp: Clear to auscultation bilaterally Cardio: Regular rate and rhythm, no murmurs Abd: Soft, non tender, non distended. Normal bowel sounds. Negative Cristobal sign. Negative Narciso sign (heel jar test). Negative psoas sign. Negative Rovsing sign. No CVA tenderness. No vesicular lesions. Skin: No petechiae or rashes. No vesicular lesions. Color appears normal for ethnicity. Back: No midline or flank tenderness. C-spine/T-spine/L-spine are midline w ith good and full range of motion and is no swelling/deformity/bulging/point of tenderness. Positive left straight leg test. Positive cross straight leg test. Negative right straight leg test. Negative right cross straight leg test. Bilateral hips are stable and unremarkable. Symmetrical knees. No calf tenderness bilaterally. No leg shortening. No external rotation of left lower extremity. No external rotation of right lower extremity. Capillary refills to bilateral lower extremities are less than 2 seconds. No saddle anesthesia. No neurovascular deficit. Ext: No cyanosis, or edema. Bilateral upper extremities are unremarkable. Able to bear weight on left lower extremity. Able to bear weight on right lower extremity. No neurovascular deficit. Ambulatory with steady gait. Neur: Awake and alert. Romberg test is negative. Sensation is intact. No neurological deficits. Psych: Normal Mood and Affect Results 24 hrs Laboratory Tests Test 12/09/18 20:56 12/09/18 21:00 Urine Color YELLOW Urine Clarity CLEAR Urine pH 7.0 Urine Specific [place] 1.015 Urine Ketones NEGATIVE mg/dL Urine Nitrite NEGATIVE mg/dL Urine Bilirubin NEGATIVE mg/dL Urine Urobilinogen NEGATIVE mg/dL Urine Leukocyte Esterase NEGATIVE Rowena/ul Urine Hemoglobin NEGATIVE mg/dL Urine Glucose NEGATIVE mg/dL Urine Total Protein NEGATIVE mg/dl POC Beta HCG, Qualitative NEGATIVE Current Medications Medications Dose Sig/Zack Start Time Status Last (Trade) Ordered Route PRN Stop Time Admin Dose Reason Admin Morphine 4 mg ONCE STAT 12/09/18 DC 12/09/18 Sulfate IM 21:00 21:15 (morphine) 12/09/18 21:02 Ketorolac 30 mg ONCE STAT 12/09/18 DC 12/09/18 Tromethamine IM 21:02 21:14 (Toradol) 12/09/18 21:03 10 mg ONCE ONCE 12/09/18 DC 12/09/18 Cyclobenzapri PO 21:30 21:14 ne HCl 12/09/18 21:31 (Flexeril) Morphine 4 mg ONCE STAT 12/09/18 DC Sulfate IM 21:21 (morphine) 12/09/18 21:23 Sodium 1,000 ml @ Q1H ONCE 12/09/18 DC 12/09/18 Chloride 1,000 mls/hr IV 22:00 22:12 12/09/18 22:59 25 mg ONCE ONCE 12/09/18 DC 12/09/18 Diphenhydrami IV 22:00 22:13 ne HCl 12/09/18 22:01 (Benadryl) Famotidine 20 mg ONCE ONCE 12/09/18 DC 12/09/18 (Pepcid Iv) IV 22:00 22:13 12/09/18 22:01 Ondansetron 4 mg ONCE STAT 12/09/18 DC 12/09/18 HCl (Zofran IV 21:48 22:13 Inj) 12/09/18 21:50 125 mg ONCE ONCE 12/09/18 DC 12/09/18 Methylprednis IV 22:00 22:13 olone Sodium 12/09/18 22:01 Succinate (Solu-Medrol) Procedures/MDM Diagnostic tests: POC urine : Negative. Urinalysis: Reviewed. Culture urine: Sent. Treatment: Toradol. Flexeril. Morphine IM. Re-evaluation: No episode of emesis here in the emergency department. Denies chest pain, back pain, abdominal pain, pelvic pain, vaginal bleeding. Patient was about to be discharged when she had a reaction to the medication that was given. Treatment: Solu Medrol IM. Normal saline IV bolus. Benadryl IV. Pepcid IV. Zofran IV. Reevaluation: Differential diagnosis I have low suspicion for pancreatitis, cholecystitis, diverticulitis, bowel obstruction, appendicitis, nephrolithiasis, pyelonephritis, obstructing kidney stones, septic stone, cauda equina syndrome, compartment syndrome, shingles. Final diagnosis: Chronic back pain. Sciatica. Prescription: Baclofen. Motrin. Follow-up with PCP in the next 24-48 hours. PCP to refer patient to pain specialist in the next 3 to 5 days. Come back here in the emergency department for any new symptoms or any worsening symptoms. All questions and concerns were answered. Patient and family members verbalized understanding and agreed with plan of care. Hemodynamically stable on discharge. Departure Diagnosis: Primary Impression: Chronic back pain Additional Impressions: Sciatica Muscle spasm Condition: Stable Additional Instructions: Follow-up with PCP in the next 24-48 hours. PCP to do an MRI in the next 5 to 7 days. PCP to refer patient to pain specialist in the next 3 to 5 days. Come back here in the emergency department for any new symptoms or any worsening symptoms. JORJE IVERSON Dec 09, 2018 20:51
[2018-12-09] MEDS ORDERED: morphine 4 MG/ML VIAL IM STA ×2 (21:00→21:21)
[2018-12-09] MEDS ORDERED: KETOROLAC 30 MG INJ IM STA (21:02)
[2018-12-09] MEDS ORDERED: IBUP-1542 PO (21:29)
[2018-12-09] MEDS ORDERED: BACL10TA PO (21:30)
[2018-12-09] MEDS ORDERED: CYCLOBENZAPRINE 10 MG TAB PO ONE (21:30)
[2018-12-09] MEDS ORDERED: ONDANSETRON 4 MG INJ IV STA (21:48)
[2018-12-09] MEDS ORDERED: SOD CHLORIDE 0.9% 1,000 ML IV ONE (22:00)
[2018-12-09] MEDS ORDERED: DIPHENHYDRAMINE 50 MG INJ IV ONE (22:00)
[2018-12-09] MEDS ORDERED: FAMOTIDINE 20 MG INJ IV ONE (22:00)
[2018-12-09] MEDS ORDERED: METHYLPREDNISOLONE 125 MG INJ IV ONE (22:00)
[2018-12-09 23:40] VITALS: BP 125/75; PULSE 74; RESP 16
== END 2018-12-10 00:13 | disposition home or self-care (01) ==
LOC: FTE 18:58
DX: M54.42 Lumbago with sciatica, left side (principal); M62.830 Muscle spasm of back
CPT/HCPCS: 81003; 81025; 87086; 96372; 96374; 96375; J1200; J1885; J2270; J2405; J2930; J7030; Z7502; Z7610

== ENCOUNTER 2019-01-05 11:19 | Emergency (ER) | payer OTHER ==
[~2019-01-05] VITALS: Ht 157.5 cm; Wt 57.2 kg
[~2019-01-05 11:19] MED LIST changes: +BACL10TA PO
[2019-01-05 11:27] VITALS: BP 117/71; PULSE 77; RESP 18; Ht 157.5 cm; Wt 57.2 kg
[2019-01-05] MEDS ORDERED: CARB15SO5 MM (11:54)
[2019-01-05] MEDS ORDERED: NAPR-985 PO (11:54)
--- NOTE | 2019-01-05 12:08 | ERD ---
ER Documentation Chief Complaint Chief Complaint C/O LIP AND GUM PAIN FOR FEW DAYS HPI 38-year-old female presenting with irritation to her lips and gums. Patient also has a mild sore throat. No fevers. Has not used medications for symptoms. States is been going on the last few days. Patient is also complaining of her knee giving out on her. She denies any severe pain or traumatic injury. Denies other medical problems. NKDA. Surgical history denies. Social history denies ROS All systems reviewed and are negative except as per history of present illness. Medications Home Meds Active Scripts Naproxen* (Naprosyn*) 500 Mg Tablet, 500 MG PO BID PRN for PAIN AND/OR INFLAMMATION, #30 TAB Prov:MARLON TELLEZ PA-C 01/05/19 Carbamide Peroxide (Gly-Oxide) 15 Ml Solution, 15 ML MM QID, #1 Prov:MARLON TELLEZ PA-C 01/05/19 Baclofen* (Baclofen*) 10 Mg Tablet, 10 MG PO Q8 PRN for MUSCLE SPASMS, #20 TAB Prov:JORJE IVERSON 12/09/18 Ibuprofen* (Motrin*) 600 Mg Tab, 600 MG PO Q8 PRN for PAIN AND OR ELEVATED TEMP, #30 TAB Prov:JORJE IVERSON F 12/09/18 Ibuprofen* (Motrin*) 600 Mg Tab, 600 MG PO Q6, #30 TAB Prov:DARCY VASQUEZ PA-C 09/27/18 Acetaminophen* (Tylophen*) 500 Mg Capsule, 1 CAP PO Q6H PRN for PAIN AND OR ELEVATED TEMP, #20 CAP Prov:JORJE IVERSON F 09/24/17 Benzonatate* (Tessalon Perle*) 100 Mg Capsule, 100 MG PO Q8H PRN for COUGH, #20 CAP Prov:JORJE IVERSON F 09/24/17 Amoxicillin/Potassium Clav (Amox-Clav 875-125 mg Tablet) 875-125 mg Tab, 1 TAB PO BID for 10 Days, #20 TAB Prov:HARMONYILACONSTANTINO CARLINAR F 09/24/17 Amoxicillin/Potassium Clav (Amox-Clav 875-125 mg Tablet) 875-125 mg Tab, 1 TAB PO BID for 7 Days, #14 TAB Prov:KAJAL SALAZARC 05/08/17 Ibuprofen* (Motrin*) 600 Mg Tab, 600 MG PO Q6, #30 TAB Prov:HESHAM ARTHUR AMY 05/08/17 Ondansetron (Ondansetron Odt) 4 Mg Tab.rapdis, 4 MG PO Q6H PRN for NAUSEA AND/OR VOMITING, #10 TAB Prov:HESHAM ARTHURLadarius REYES 05/08/17 Albuterol Sulfate* (Proair HFA*) 8.5 Gm Hfa.aer.ad, 2 PUFF INH Q4, #1 INHALER Prov:HESHAM ARTHURLadarius REYES 05/08/17 Benzonatate* (Tessalon Perle*) 100 Mg Capsule, 100 MG PO Q8H PRN for COUGH, #20 CAP Prov:HESHAM ARTHURLadarius REYES 05/08/17 Reported Medications Multivit/Min/Fol Ac/Iron/Pren* ( S*) 1 Tab Tab, 1 TAB PO DAILY, TAB 08/03/16 Allergies Allergies: Coded Allergies: codeine (Verified Allergy, Mild, NAUSEA AND VOMITING, 01/05/19) PMhx/Soc Medical and Surgical Hx: pt denies Surgical Hx History of Surgery: No Anesthesia Reaction: No Hx Neurological Disorder: No Hx Respiratory Disorders: No Hx Cardiac Disorders: No Hx Psychiatric Problems: No Hx Miscellaneous Medical Probl: Yes (CHRONIC BACK PAIN ) Hx Alcohol Use: No Hx Substance Use: No Hx Tobacco Use: No Smoking Status: Never smoker FmHx Family History: No diabetes, No coronary disease, No other Physical Exam Vitals Vital Signs Date Temp Pulse Resp B/P (MAP) Pulse Ox O2 O2 Flow FiO2 Time Delivery Rate 01/05/19 97.8 77 18 117/71 100 11:27 (86) Physical Exam GENERAL: The patient is well-appearing, well-nourished, in no acute distress HEENT: Atraumatic. Conjunctivae are pink. Pupils equal, round, and reactive to light. There is no scleral icterus. Tympanic membranes clear bilaterally. Oropharynx clear. Open sores noted to the gums with no vesicles or pustules. NECK: C-spine is soft and supple. There is no meningismus. There is no cervical lymphadenopathy. CHEST: Clear to auscultation bilaterally. There are no rales, wheezes or rhonchi. HEART: Regular rate and rhythm. No murmurs, clicks, rubs or gallops. Procedures/MDM MDM: 38-year-old female presenting with gum pain. Patient exam is concerning for aphthous ulcers and I will treat with supportive medications. I have low suspicion for bacterial infection. Patient is discharged with strict ER precautions and told to follow-up with primary care within 1 to 2 days for close evaluation. Patient is told symptoms change or worsen to return immediately to the ER. All questions answered at discharge Departure Diagnosis: Primary Impression: Sore in mouth Additional Impression: Muscle spasm Condition: Stable Patient Instructions: When Your Child Has Mouth Sores Referrals: [facility] Additional Instructions: FOLLOW UP WITH YOUR PRIMARY CARE PHYSICIAN TOMORROW.Return to this facility if you are not improving as expected. MARLON TELLEZ PA-C Jan 05, 2019 12:08
== END 2019-01-05 12:06 | disposition home or self-care (01) ==
LOC: FTE 11:19
DX: K13.79 Other lesions of oral mucosa (principal); M62.838 Other muscle spasm
CPT/HCPCS: 99282